=== PATIENT | female | born 1960 | race Caucasian/White ===

== ENCOUNTER 2023-02-13 14:56 | Emergency (ER) | payer OTHER ==
[~2023-02-13] VITALS: Ht 182.9 cm; Wt 124.7 kg
--- NOTE | 2023-02-13 15:16 | NUR ---
[id number], from home and [employer], got bit on the L thumb 6/10 ps
--- NOTE | 2023-02-13 15:55 | NUR ---
AT BEDSIDE FOR EVAL.
[2023-02-13] MEDS ORDERED: TDAP [DIPH/PERTUSSIS/TET] 0.5 ML VIAL IM ONE (16:30)
[2023-02-13] MEDS ORDERED: AMOX/CLAVULANATE 875 MG TABLET PO ONE (16:30)
[2023-02-13] MEDS ORDERED: AMOX-430 PO (17:27)
[2023-02-13] MEDS ORDERED: AMOX/CLAVULANATE 875 MG TABLET ONE (17:45)
[2023-02-13] MEDS ORDERED: ropiniROLE 0.5 MG TABLET PO ONE (18:00)
[2023-02-13] MEDS ORDERED: ropiniROLE 0.5 MG TABLET PO SCH (18:00)
--- NOTE | 2023-02-13 18:00 | NUR ---
Patient discharged WITH [employer]ERS in stable condition. Written and verbal after care instructions given.
[2023-02-13 18:12] VITALS: BP 128/80
== END 2023-02-13 18:00 ==
LOC: ER 14:58
DX: S60.372A Other superficial bite of left thumb, initial encounter (principal); G25.81 Restless legs syndrome; Y04.1XXA Assault by human bite, initial encounter; Y93.89 Activity, other specified; Y92.89 Other specified places as the place of occurrence of the external cause; Y99.8 Other external cause status
CPT/HCPCS: 73140-TC

== ENCOUNTER 2025-04-16 21:00 | Emergency (ER) | payer MEDICAID, OTHER ==
[~2025-04-16] VITALS: Ht 182.9 cm; Wt 122.5 kg
[~2025-04-16 21:00] MED LIST: AMOX-430 PO
[2025-04-16] MEDS ORDERED: KETOROLAC TROMETHAMINE INJ 30 MG/ML VIAL ONE (23:02)
[2025-04-16] MEDS ORDERED: KETOROLAC TROMETHAMINE 15 MG/ML VIAL ONE (23:04)
[2025-04-16] MEDS: KETOROLAC TROMETHAMINE 15 MG/ML VIAL IM ONE (23:10)
[2025-04-16] MEDS ORDERED: AZIT250T13 PO (23:22)
[2025-04-16] MEDS ORDERED: AMOX-430 PO (23:22)
[2025-04-16] MEDS ORDERED: ROPI0.5T4 PO (23:22)
[2025-04-16 23:33] VITALS: BP 138/74; TEMP 98; O2SAT 97
== END 2025-04-16 23:33 | disposition home or self-care (01) ==
LOC: ER 21:03
DX: J18.9 Pneumonia, unspecified organism (principal); G25.81 Restless legs syndrome; Z79.899 Other long term (current) drug therapy
CPT/HCPCS: 99283; 71045; 96372; J1885

== ENCOUNTER 2025-04-27 07:21 | Emergency (ER) | payer MEDICAID ==
[~2025-04-27] VITALS: Ht 182.9 cm; Wt 99.8 kg
[~2025-04-27 07:21] MED LIST changes: +AZIT250T13 PO; +ROPI0.5T4 PO
[2025-04-27] MEDS ORDERED: ACETAMINOPHEN 160 MG/5 ML ONE (07:44)
[2025-04-27 08:09] LABS: PLATELET COUNT (AUTO) 160 K/uL (150-450); RED BLOOD CELL COUNT(AUTO) 3.87 MIL/uL (4.0-5.2); RED CELL DISTRIBUTION WIDTH 14.8 % (11.5-15.0); WHITE BLOOD COUNT (AUTO) 5.2 K/uL (4.3-11.0)
[2025-04-27] MEDS ORDERED: IPRATROPIUM NEB FS 0.5 MG/2.5 ML AMPUL.NEB ONE (08:10)
[2025-04-27] MEDS ORDERED: ALBUTEROL FS 2.5 MG/3 ML VIAL.NEB ONE (08:10)
[2025-04-27 08:13] VITALS: O2SAT 96
[2025-04-27] MEDS: IPRATROPIUM NEB FS 0.5 MG/2.5 ML AMPUL.NEB NEB ONE (08:13)
[2025-04-27] MEDS: ALBUTEROL FS 2.5 MG/3 ML VIAL.NEB NEB ONE (08:13)
[2025-04-27 08:15] LABS: CALCIUM, SERUM 8.9 mg/dL (8.5-10.1); CREATININE 1.0 mg/dL (0.6-1.3); SODIUM SERUM 140.0 mmol/L (136-145); UREA NITROGEN, BLOOD 33.0 mg/dL (7-18)
[2025-04-27 08:31] VITALS: O2SAT 99
[2025-04-27] MEDS ORDERED: PRED20TA PO (09:04)
[2025-04-27] MEDS ORDERED: ALBU18HF2 INH (09:04)
[2025-04-27 09:17] VITALS: BP 129/72; TEMP 98.1; O2SAT 97
== END 2025-04-27 09:18 | disposition home or self-care (01) ==
LOC: ER 07:25
DX: J44.89 Other specified chronic obstructive pulmonary disease (principal); G25.81 Restless legs syndrome; R09.81 Nasal congestion; Z79.52 Long term (current) use of systemic steroids; Z60.2 Problems related to living alone
CPT/HCPCS: 36415; 71045-TC; 80048-TC; 85025-TC